=== PATIENT | female | born 1970 | race Caucasian/White ===

== ENCOUNTER 2019-03-17 01:05 | Emergency (ER) | payer SELFPAY ==
[~2019-03-17] VITALS: Ht 157.5 cm; Wt 54.5 kg
[2019-03-17 01:05] VITALS: Ht 157.5 cm; Wt 54.5 kg
[2019-03-17] MEDS ORDERED: NEURONTIN 300300 MG PO (01:08)
[2019-03-17] MEDS ORDERED: ZOLOFT50 MG PO (01:08)
[2019-03-17] MEDS ORDERED: NAPROSYN500 MG PO (02:01)
[2019-03-17 02:13] LABS: APPEARANCE CLEAR (CLEAR); BILIRUBIN NEGATIVE (NEGATIVE); COLOR YELLOW (YELLOW); GLUCOSE NEGATIVE (NEGATIVE); KETONE NEGATIVE (NEGATIVE); NITRITE NEGATIVE (NEGATIVE); PROTEIN NEGATIVE (NEGATIVE); UROBILINOGEN NORMAL (NORMAL)
[2019-03-17 02:14] LABS: BACTERIA NONE SEEN /hpf (NEGATIVE); EPITHELIAL CELLS 0-5 /hpf (0-5); RED CELLS - URINE 0-5 /hpf (0-5); WHITE CELLS - URINE 0-5 /hpf (NEGATIVE)
[2019-03-17 02:30] VITALS: BP 112/65
[2019-03-21 14:11] LABS: CHLAMYDIA TRACHOMATIS, NAA Negative (Negative)
== END 2019-03-17 02:30 | disposition home or self-care (01) ==
LOC: D.ER 01:05
PROVIDERS: Family Medicine
DX: T19.2XXA Foreign body in vulva and vagina, initial encounter (principal); T76.21XA Adult sexual abuse, suspected, initial encounter